=== PATIENT | female | born 1995 | race Caucasian/White ===

== ENCOUNTER 2017-06-10 00:30 | Emergency (ER) | payer BC ==
[~2017-06-10] VITALS: Ht 160 cm; Wt 52.7 kg
[2017-06-10 00:40] VITALS: TEMP 98.9
[2017-06-10] MEDS ORDERED: LATUDA20 MG PO (01:30)
[2017-06-10] MEDS ORDERED: LAMICTAL XR50 MG PO (01:31)
[2017-06-10] MEDS ORDERED: LAMICTAL 25MG T25 MG PO ×2 (01:31→01:41)
[2017-06-10 02:30] VITALS: BP 102/72; PULSE 95
== END 2017-06-10 02:31 | disposition home or self-care (01) ==
LOC: COL.ER 00:30
DX: R20.2 Paresthesia of skin (principal); T43.595A Adverse effect of other antipsychotics and neuroleptics, initial encounter; F31.9 Bipolar disorder, unspecified; Z98.818 Other dental procedure status

== ENCOUNTER 2018-05-19 05:09 | Emergency (ER) | payer BC ==
[~2018-05-19] VITALS: Ht 160 cm; Wt 54.5 kg
[~2018-05-19 05:09] MED LIST: LAMICTAL 25MG T25 MG PO; LAMICTAL XR50 MG PO; LATUDA20 MG PO
[2018-05-19 05:16] VITALS: BP 116/79; TEMP 97.5
[2018-05-19] MEDS ORDERED: TYLENOL W/COD1 UDTAB PO (06:35)
[2018-05-19 06:46] VITALS: PULSE 92
== END 2018-05-19 06:47 | disposition home or self-care (01) ==
LOC: COL.ER 05:09
DX: R51 Headache (principal); F31.9 Bipolar disorder, unspecified

== ENCOUNTER 2018-06-21 07:05 | Day surgery (SDC) | payer BC ==
[~2018-06-21] VITALS: Ht 160 cm; Wt 52.3 kg
[~2018-06-21 07:05] MED LIST changes: +TYLENOL W/COD1 UDTAB PO
[2018-06-21] MEDS ORDERED: LAMICTAL200 MG PO (07:21)
[2018-06-21] MEDS ORDERED: PROZAC 20MG20 MG PO (07:21)
[2018-06-21] MEDS ORDERED: PRILOTC PO (07:22)
[2018-06-21 07:50] VITALS: BP 124/94; PULSE 114; TEMP 98.2
[2018-06-21 09:10] VITALS: BP 128/81; PULSE 109; TEMP 98.8
[2018-06-21 09:25] VITALS: BP 109/77; PULSE 105
[2018-06-21 09:40] VITALS: BP 107/78; PULSE 101
== END 2018-06-21 10:05 | disposition home or self-care (01) ==
LOC: SDCO 07:05
DX: K21.0 Gastro-esophageal reflux disease with esophagitis (principal); D50.9 Iron deficiency anemia, unspecified; Z87.11 Personal history of peptic ulcer disease; R13.12 Dysphagia, oropharyngeal phase; Z79.899 Other long term (current) drug therapy
CPT/HCPCS: J2250; J2405; J3010; J7030

== ENCOUNTER 2022-09-11 14:12 | Emergency (ER) | payer OTHER ==
[~2022-09-11] VITALS: Ht 160 cm; Wt 56.8 kg
[~2022-09-11 14:12] MED LIST changes: +LAMICTAL200 MG PO; +PRILOTC PO; +PROZAC 20MG20 MG PO
[2022-09-11 14:46] LABS: COLLECTION METHOD CLEAN CATCH
[2022-09-11 14:59] LABS: URINE APPEARANCE Clear (CLEAR/HAZY); URINE BLOOD Negative (NEGATIVE); URINE COLOR Yellow (YELLOW); URINE GLUCOSE Negative (NEGATIVE); URINE KETONE Negative (NEGATIVE); URINE NITRATE Negative (NEGATIVE); URINE PROTEIN(semi-quant) Negative (NEGATIVE); URINE UROBILINOGEN 0.2 E.U/dL (0.2-1.0)
[2022-09-11 15:09] LABS: ALBUMIN 4.3 gm/dL (3.5-5.0); BILIRUBIN,TOTAL 0.4 mg/dL (0.2-1.2); C-REACTIVE PROTEIN 8.4 mg/dL (0.00-0.50); CALCIUM 9.8 mg/dL (8.4-10.2); CREATININE, serum 0.81 mg/dL (0.57-1.11); POTASSIUM 3.6 mmol/L (3.5-4.5)
[2022-09-11 15:32] LABS: BASO % 0.2 % (0.0-2.0); EOS # 0.1 K/mm3 (0.0-0.7); EOS % 0.7 % (0.0-4.0); GRAN # 6.1 K/mm3 (1.4-6.5); GRAN % 72.2 % (42.2-75.2); HEMOGLOBIN 12.1 g/dl (12.5-16.0); LYMPH # 1.5 K/mm3 (1.2-3.4); LYMPH % 17.5 % (20.0-51.0); MEAN CELL VOLUME 90 fl (80.0-100.0); MEAN CORPUSCULAR HEMOGLOBIN 31 pg (27-31); MEAN CORPUSCULAR HGB CONC 34 g/dl (33.0-37.0); MEAN PLATELET VOLUME 10.1 fl (7.4-10.4); MONO # 0.8 K/mm3 (0.1-0.6); PLATELET COUNT 258 K/mm3 (130-400); REDCELL DISTRIBUTION WIDTH-CV 11.9 % (11.5-14.5)
[2022-09-11 15:33] LABS: HEMATOCRIT 35.2 % (37.0-47.0)
[2022-09-11 16:21] VITALS: BP 113/78; PULSE 97; TEMP 97.9
== END 2022-09-11 16:28 | disposition home or self-care (01) ==
LOC: COL.ER 14:12
PROVIDERS: Nurse Practitioner
DX: J32.9 Chronic sinusitis, unspecified (principal); M54.6 Pain in thoracic spine; Z20.822 Contact with and (suspected) exposure to COVID-19
CPT/HCPCS: J7030